=== PATIENT | female | born 2000 | race American Indian/Alaskan Native ===

== ENCOUNTER 2021-11-20 07:40 | Emergency (ER) | payer OTHER, MEDICAID ==
[2021-11-20] MEDS ORDERED: KETOROLAC 10 MG TAB PO SCH (11:00)
[2021-11-20] MEDS ORDERED: CYCLOBENZAPRINE 10 MG TAB PO SCH (11:00)
[2021-11-20] MEDS ORDERED: LIDOCAINE (1%) 10 MG/1 ML VIAL 20 ML MDV INFILTRATI SCH (11:00)
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
[2021-11-20] MEDS ORDERED: SODIUM CHLORIDE IRRI 500 ML 500 ML IR ONE (11:32)
[2021-11-20] MEDS ORDERED: cephALEXin 500 MG CAP PO ONE (11:32)
[2021-11-20] MEDS ORDERED: TETANUS,DIPH,PERTUSS(ACELL) VACCINE 0.5 ML SYRINGE IM ONE (12:00)
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
[2021-11-20 13:38] VITALS: BP 110/65
== END 2021-11-20 13:37 | disposition home or self-care (01) ==
LOC: ED 07:40
DX: S81.011A Laceration without foreign body, right knee, initial encounter (principal); V89.2XXA Person injured in unspecified motor-vehicle accident, traffic, initial encounter; Y93.89 Activity, other specified; Y92.89 Other specified places as the place of occurrence of the external cause; Y99.8 Other external cause status; M54.9 Dorsalgia, unspecified
CPT/HCPCS: 90471; 90715; 99283

== ENCOUNTER 2021-12-24 16:30 | Emergency (ER) | payer MEDICAID, OTHER ==
--- NOTE | 2021-12-24 16:33 | Emergency Department Report ---
Suture/Staple Removal - HPI Stated Complaint: STITCHES REMOVED Time Seen by Provider: 12/24/21 16:33 When Sutures or Girish Placed: >14 Days Ago Wound Location: right knee ED Review of Systems ROS: Stated complaint: STITCHES REMOVED Other details as noted in HPI Comment: All other systems reviewed and negative ED Past Medical Hx - Past Medical History Previous Medical History?: No - Surgical History Past Surgical History?: No - Family History Family history: no significant - Social History Smoking Status: Never Smoker Substance Use Type: None - Medications Home Medications: Home Medications Medication Instructions Recorded Confirmed Last Taken Type Acetaminophen/Codeine [Tylenol 1 tab PO Q6H PRN #12 tab 11/20/21 Unknown Rx /Codeine # 3 tab] Cyclobenzaprine [Flexeril] 10 mg PO TID PRN #21 tab 11/20/21 Unknown Rx Naproxen 500 mg PO BID 7 Days #14 tab 11/20/21 Unknown Rx cephALEXin [Keflex] 500 mg PO BID #14 cap 11/20/21 Unknown Rx Suture Removal Exam - Exam General: Vital signs noted. No distress. Alert and acting appropriately. Wound: No Pathologic Erythema, No Tenderness, No Drainage, No Pus, No Wound Dehiscence Other Systems: All other systems reviewed and are unremarkable. ED Recheck MDM - Core Measures Measure Exclusions: not indicated - Differential Diagnosis Suture/Staple Removal - Medical Decision Making sutures removed without difficulty wound care provided dc home with dc plan of care including diet, meds, activity and follow up. She verbalizes understanding of plan of care. Critical care attestation.: If time is entered above; I have spent that time in minutes in the direct care of this critically ill patient, excluding procedure time. ED Disposition Clinical Impression: Visit for suture removal Disposition: 01 HOME / SELF CARE / HOMELESS Is pt being admited?: No Does the pt Need Aspirin: No Condition: Stable Referrals: PRIMARY CARE, [Primary Care Provider] - 3-5 Days Time of Disposition: 17:38
== END 2021-12-24 19:00 | disposition home or self-care (01) ==
LOC: ED 16:30
DX: S81.011A Laceration without foreign body, right knee, initial encounter (principal); X58.XXXA Exposure to other specified factors, initial encounter; Y93.89 Activity, other specified; Y92.89 Other specified places as the place of occurrence of the external cause; Y99.8 Other external cause status